=== PATIENT | female | born 1965 | race Caucasian/White ===

== ENCOUNTER 2019-01-15 15:15 | Day surgery (SDC) | payer OTHER ==
[2019-01-15] MEDS ORDERED: Depo-Medrol 40 MG/ML IM ONE (15:16)
[2019-01-15] MEDS ORDERED: Sodium Chloride 0.9(Preservative Free) 10 ML IJ ONE (15:16)
[2019-01-15] MEDS ORDERED: Ketamine HCl 50 MG/ML IJ ONE (15:16)
[2019-01-15] MEDS ORDERED: DIPRIVAN 200 MG/20 ML IV ONE (15:16)
[2019-01-15] MEDS ORDERED: Lactated Ringers 1,000 ML IV ONE (18:08)
--- NOTE | 2019-01-16 08:32 | XRAY ---
Indication: Left and right L4-L5 and L5-S1 transforaminal FRANK. Intraoperative fluoroscopy was provided for 58 seconds. 6 digital spot images submitted for interpretation demonstrates posterior needle tips projecting over the expected course of the left/right L4 and L5 nerve roots. Small amount of contrast injected for needle tip placement. Correlate with intraoperative findings/report.
--- NOTE | 2019-01-16 08:40 | XRAY ---
58 seconds of fluoroscopy was used in surgery for a right L4L5 and left L4L5, L5S1 transforaminal FRANK.
== END 2019-01-15 17:16 | disposition home or self-care (01) ==
LOC: SDC-PAIN 15:15
PROVIDERS: ATTEND Psychiatry & Neurology Pain Medicine
DX: M54.16 Radiculopathy, lumbar region (principal); Z79.899 Other long term (current) drug therapy; J44.9 Chronic obstructive pulmonary disease, unspecified; G47.30 Sleep apnea, unspecified; K21.9 Gastro-esophageal reflux disease without esophagitis; F32.9 Major depressive disorder, single episode, unspecified
CPT/HCPCS: 64483; 64484; 72100; 77003; J1030; J2704; Q9967